=== PATIENT | female | born 1935 | race Caucasian/White ===

== ENCOUNTER → 2018-11-27 | Outpatient (REF) | payer MEDICARE, OTHER ==
[2018-11-27 17:57] LABS: APPEARANCE, URINE CLEAR (CLEAR); BACTERIA, URINE AUTO NEGATIVE (NEGATIVE); BILIRUBIN, URINE AUTO NEGATIVE (NEGATIVE); BLOOD, URINE BLOOD 1+ (NEGATIVE); COLOR, URINE STRAW (YELLOW); GLUCOSE, URINE (UA) AUTO NEGATIVE (NEGATIVE); KETONE, URINE AUTO NEGATIVE (NEGATIVE); LEUKOCYTE ESTERASE, URINE AUTO 2+ (NEGATIVE); NITRITE, URINE AUTO NEGATIVE (NEGATIVE); PROTEIN, URINE AUTO NEGATIVE (NEGATIVE); RBC, URINE AUTO 1 /HPF (0-3); SPECIFIC GRAVITY URINE AUTO 1.003 (1.002-1.035); SQUAMOUS EPITHELIAL CELL UR AU 0 /HPF (0-6); UROBILINOGEN, URINE AUTO 0.2 mg/dL (0.0-2.0); WBC, URINE AUTO 3 /HPF (0-3)
== END ==
LOC: M LAB REF 17:12
PROVIDERS: ATTEND Obstetrics & Gynecology
DX: N81.11 Cystocele, midline (principal); N32.81 Overactive bladder; Z79.899 Other long term (current) drug therapy

== ENCOUNTER 2019-01-22 11:12 | Emergency (ER) | payer MEDICARE ==
[~2019-01-22 11:12] MED LIST: ASPI81TA85 PO; ATEN25TA PO; CALC600C3 PO; MAGN400C2 PO; OMEP20CA4 PO
[2019-01-22] MEDS ORDERED: NITR100C2 PO (11:43)
[2019-01-22] MEDS ORDERED: SERT-141 PO (11:43)
[2019-01-22 12:46] VITALS: BP 189/82
== END 2019-01-22 12:57 | disposition home or self-care (01) ==
LOC: M ED 11:12
DX: F41.9 Anxiety disorder, unspecified (principal); F43.20 Adjustment disorder, unspecified; I10 Essential (primary) hypertension; N39.0 Urinary tract infection, site not specified; Z79.899 Other long term (current) drug therapy

== ENCOUNTER → 2019-03-08 | Outpatient (REF) | payer MEDICARE ==
[~2019-03-08] MED LIST changes: +NITR100C2 PO; +OMEP-172 PO; -OMEP20CA4 PO; +SERT-141 PO
[2019-03-08 18:38] LABS: APPEARANCE, URINE CLEAR (CLEAR); BACTERIA, URINE AUTO NEGATIVE (NEGATIVE); BILIRUBIN, URINE AUTO NEGATIVE (NEGATIVE); BLOOD, URINE BLOOD NEGATIVE (NEGATIVE); COLOR, URINE YELLOW (YELLOW); GLUCOSE, URINE (UA) AUTO NEGATIVE (NEGATIVE); KETONE, URINE AUTO NEGATIVE (NEGATIVE); LEUKOCYTE ESTERASE, URINE AUTO 3+ (NEGATIVE); NITRITE, URINE AUTO NEGATIVE (NEGATIVE); PROTEIN, URINE AUTO NEGATIVE (NEGATIVE); RBC, URINE AUTO 0 /HPF (0-3); SPECIFIC GRAVITY URINE AUTO 1.006 (1.002-1.035); SQUAMOUS EPITHELIAL CELL UR AU 1 /HPF (0-6); UROBILINOGEN, URINE AUTO 0.2 mg/dL (0.0-2.0); WBC, URINE AUTO 2 /HPF (0-3)
== END ==
LOC: M LAB REF 16:48
PROVIDERS: ATTEND Obstetrics & Gynecology
DX: N39.0 Urinary tract infection, site not specified (principal)

== ENCOUNTER → 2022-04-14 | Outpatient (REF) | payer MEDICARE, MEDICAID ==
[~2022-04-14] MED LIST changes: -ASPI81TA85 PO; +ASPI81TA86 PO; -OMEP-172 PO; +OMEP1CAP73 PO
[2022-04-14 08:40] LABS: HEMATOCRIT 38.4 % (36.0-47.0); HEMOGLOBIN 12.3 g/dl (12.0-15.5); MEAN CORPUSCULAR HEMOGLOBIN 31.1 pg (27.0-33.0); MEAN CORPUSCULAR VOLUME 97.2 fl (80.0-96.0); PLATELET COUNT, AUTOMATED 213 10^3/uL (150-450); RED BLOOD COUNT 3.95 10^6/uL (4.00-5.40); WHITE BLOOD COUNT 6.2 10^3/uL (4.0-10.0)
[2022-04-14 09:08] LABS: VALPROIC ACID (DEPAKOTE) < 3.0 UG/ML (50.0-100.0)
[2022-04-14 09:10] LABS: MAGNESIUM LEVEL 1.8 MG/DL (1.8-2.4)
[2022-04-14 09:12] LABS: ALKALINE PHOSPHATASE 52 U/L (46-116); ALT/SGPT 18 U/L (7.0-40); AST/SGOT 20 U/L (<34); BILIRUBIN,TOTAL 0.7 MG/DL (0.3-1.2); BLOOD UREA NITROGEN 21 MG/DL (9-23); CALCIUM LEVEL 8.9 MG/DL (8.3-10.6); CARBON DIOXIDE LEVEL 31 MMOL/L (20-31); CHLORIDE LEVEL 101 MMOL/L (98-107); GLUCOSE, FASTING 75 MG/DL (74-106); POTASSIUM SERUM 3.5 MMOL/L (3.5-5.1); SODIUM LEVEL 140 MMOL/L (136-145); TOTAL PROTEIN 5.5 G/DL (5.7-8.2)
== END ==
LOC: SKLAB8 07:00
PROVIDERS: ATTEND Internal Medicine
DX: E61.2 Magnesium deficiency (principal); F03.90 Unspecified dementia, unspecified severity, without behavioral disturbance, psychotic disturbance, mood disturbance, and anxiety

== ENCOUNTER → 2022-07-14 | Outpatient (REF) | payer MEDICARE, MEDICAID ==
[2022-07-14 08:41] LABS: HEMATOCRIT 42.5 % (36.0-47.0); HEMOGLOBIN 13.6 g/dl (12.0-15.5); MEAN CORPUSCULAR HEMOGLOBIN 31.1 pg (27.0-33.0); MEAN CORPUSCULAR VOLUME 97.3 fl (80.0-96.0); PLATELET COUNT, AUTOMATED 250 10^3/uL (150-450); RED BLOOD COUNT 4.37 10^6/uL (4.00-5.40); WHITE BLOOD COUNT 8.5 10^3/uL (4.0-10.0)
[2022-07-14 09:17] LABS: ALBUMIN 3.3 G/DL (3.2-5.2); ALKALINE PHOSPHATASE 118 U/L (46-116); ALT/SGPT 14 U/L (7.0-40); AST/SGOT 18 U/L (<34); BILIRUBIN,TOTAL 0.5 MG/DL (0.3-1.2); BLOOD UREA NITROGEN 24 MG/DL (9-23); CARBON DIOXIDE LEVEL 32 MMOL/L (20-31); CHLORIDE LEVEL 99 MMOL/L (98-107); CREATININE FOR GFR 0.87 MG/DL (0.55-1.30); GLOMERULAR FILTRATION RATE > 60.0 (>32); GLUCOSE, FASTING 86 MG/DL (74-106); MAGNESIUM LEVEL 1.8 MG/DL (1.8-2.4); POTASSIUM SERUM 3.4 MMOL/L (3.5-5.1); SODIUM LEVEL 137 MMOL/L (136-145); TOTAL PROTEIN 6.6 G/DL (5.7-8.2)
[2022-07-14 14:43] LABS: VALPROIC ACID (DEPAKOTE) < 3.0 UG/ML (50.0-100.0)
== END ==
LOC: SKLAB8 07:00
PROVIDERS: ATTEND Internal Medicine
DX: F03.918 Unspecified dementia, unspecified severity, with other behavioral disturbance (principal); E83.42 Hypomagnesemia

== ENCOUNTER → 2022-09-07 | Outpatient (REF) | payer MEDICARE, MEDICAID | LOC: SKLAB8 11:39 | PROVIDERS: ATTEND Internal Medicine | DX: M51.36 Other intervertebral disc degeneration, lumbar region (principal); M47.816 Spondylosis without myelopathy or radiculopathy, lumbar region ==

== ENCOUNTER → 2022-09-11 | Outpatient (REF) | payer MEDICARE, MEDICAID ==
[2022-09-11 11:56] LABS: HEMATOCRIT 36.6 % (36.0-47.0); HEMOGLOBIN 11.7 g/dl (12.0-15.5); MEAN CORPUSCULAR HEMOGLOBIN 30.7 pg (27.0-33.0); MEAN CORPUSCULAR VOLUME 96.1 fl (80.0-96.0); PLATELET COUNT, AUTOMATED 238 10^3/uL (150-450); RED BLOOD COUNT 3.81 10^6/uL (4.00-5.40); WHITE BLOOD COUNT 8.8 10^3/uL (4.0-10.0)
[2022-09-11 12:00] LABS: ALBUMIN 3.1 G/DL (3.2-5.2); BILIRUBIN,TOTAL 0.6 MG/DL (0.3-1.2); CALCIUM LEVEL 9.2 MG/DL (8.3-10.6); CREATININE FOR GFR 0.97 MG/DL (0.55-1.30); POTASSIUM SERUM 3.8 MMOL/L (3.5-5.1); TOTAL PROTEIN 5.8 G/DL (5.7-8.2)
== END ==
LOC: SKLAB8 06:21
PROVIDERS: ATTEND Internal Medicine
DX: R60.0 Localized edema (principal)

== ENCOUNTER → 2022-11-10 | Outpatient (REF) | payer MEDICARE, MEDICAID ==
[2022-11-10 06:45] LABS: HEMATOCRIT 35.2 % (36.0-47.0); HEMOGLOBIN 11.3 g/dl (12.0-15.5); MEAN CORPUSCULAR HEMOGLOBIN 30.8 pg (27.0-33.0); MEAN CORPUSCULAR HGB CONC 32.1 g/dl (32.0-36.5); MEAN CORPUSCULAR VOLUME 95.9 fl (80.0-96.0); PLATELET COUNT, AUTOMATED 187 10^3/uL (150-450); RED BLOOD COUNT 3.67 10^6/uL (4.00-5.40); WHITE BLOOD COUNT 6.3 10^3/uL (4.0-10.0)
[2022-11-10 07:20] LABS: VALPROIC ACID (DEPAKOTE) < 3.0 UG/ML (50.0-100.0)
[2022-11-10 07:22] LABS: ALBUMIN 2.7 G/DL (3.2-5.2); ALKALINE PHOSPHATASE 68 U/L (46-116); ALT/SGPT 13 U/L (7.0-40); AST/SGOT 9 U/L (<34); BILIRUBIN,TOTAL 0.5 MG/DL (0.3-1.2); BLOOD UREA NITROGEN 28 MG/DL (9-23); CALCIUM LEVEL 8.5 MG/DL (8.3-10.6); CARBON DIOXIDE LEVEL 33 MMOL/L (20-31); CHLORIDE LEVEL 104 MMOL/L (98-107); CREATININE FOR GFR 1.05 MG/DL (0.55-1.30); GLOMERULAR FILTRATION RATE 52.9 (>32); GLUCOSE, FASTING 78 MG/DL (74-106); MAGNESIUM LEVEL 1.9 MG/DL (1.8-2.4); POTASSIUM SERUM 3.6 MMOL/L (3.5-5.1); SODIUM LEVEL 141 MMOL/L (136-145); TOTAL PROTEIN 5.3 G/DL (5.7-8.2)
== END ==
LOC: SKLAB8 07:00
PROVIDERS: ATTEND Internal Medicine
DX: E83.42 Hypomagnesemia (principal)

== ENCOUNTER → 2023-01-10 | Outpatient (REF) | payer MEDICARE, MEDICAID ==
[2023-01-10 09:37] LABS: HEMATOCRIT 43.2 % (36.0-47.0); HEMOGLOBIN 13.9 g/dl (12.0-15.5); MEAN CORPUSCULAR HEMOGLOBIN 30.9 pg (27.0-33.0); MEAN CORPUSCULAR HGB CONC 32.2 g/dl (32.0-36.5); PLATELET COUNT, AUTOMATED 193 10^3/uL (150-450)
[2023-01-10 09:59] LABS: ALBUMIN 3.3 G/DL (3.2-5.2); ALKALINE PHOSPHATASE 82 U/L (46-116); ALT/SGPT 16 U/L (7.0-40); AST/SGOT 18 U/L (<34); BILIRUBIN,TOTAL 0.6 MG/DL (0.3-1.2); BLOOD UREA NITROGEN 23 MG/DL (9-23); CARBON DIOXIDE LEVEL 31 MMOL/L (20-31); CHLORIDE LEVEL 102 MMOL/L (98-107); CREATININE FOR GFR 0.91 MG/DL (0.55-1.30); GLOMERULAR FILTRATION RATE > 60.0 (>32); GLUCOSE, FASTING 123 MG/DL (74-106); SODIUM LEVEL 139 MMOL/L (136-145); TOTAL PROTEIN 6.3 G/DL (5.7-8.2)
== END ==
LOC: SKLAB3 07:00
PROVIDERS: ATTEND Nurse Practitioner
DX: R60.0 Localized edema (principal)

== ENCOUNTER → 2023-03-14 | Outpatient (REF) | payer MEDICARE, MEDICAID | LOC: SKLAB3 08:18 | PROVIDERS: ATTEND Internal Medicine | DX: E83.42 Hypomagnesemia (principal) ==

== ENCOUNTER → 2023-04-11 | Outpatient (REF) | payer MEDICARE, MEDICAID | LOC: SKLAB3 10:03 | PROVIDERS: ATTEND Internal Medicine | DX: I10 Essential (primary) hypertension (principal); Z53.8 Procedure and treatment not carried out for other reasons ==

== ENCOUNTER → 2023-05-16 | Outpatient (REF) | payer MEDICARE, MEDICAID ==
[2023-05-16 13:16] LABS: HEMATOCRIT 39.5 % (36.0-47.0); HEMOGLOBIN 12.8 g/dl (12.0-15.5); MEAN CORPUSCULAR HEMOGLOBIN 30.7 pg (27.0-33.0); MEAN CORPUSCULAR HGB CONC 32.4 g/dl (32.0-36.5); MEAN CORPUSCULAR VOLUME 94.7 fl (80.0-96.0); PLATELET COUNT, AUTOMATED 226 10^3/uL (150-450); RED BLOOD COUNT 4.17 10^6/uL (4.00-5.40); WHITE BLOOD COUNT 7.3 10^3/uL (4.0-10.0)
[2023-05-16 13:41] LABS: ALBUMIN 2.9 G/DL (3.2-5.2); BILIRUBIN,TOTAL 0.4 MG/DL (0.3-1.2); CALCIUM LEVEL 8.7 MG/DL (8.3-10.6); GLOMERULAR FILTRATION RATE 55.8 (>32); POTASSIUM SERUM 4.1 MMOL/L (3.5-5.1); TOTAL PROTEIN 5.8 G/DL (5.7-8.2)
== END ==
LOC: SKLAB3 10:54
PROVIDERS: ATTEND Internal Medicine
DX: F03.90 Unspecified dementia, unspecified severity, without behavioral disturbance, psychotic disturbance, mood disturbance, and anxiety (principal); G20.C Parkinsonism, unspecified

== ENCOUNTER → 2023-07-19 | Outpatient (REF) | payer MEDICARE, MEDICAID | LOC: SKLAB3 07:00 | PROVIDERS: ATTEND Nurse Practitioner | DX: E83.42 Hypomagnesemia (principal) ==

== ENCOUNTER → 2023-09-04 | Outpatient (REF) | payer MEDICARE, MEDICAID ==
[~2023-09-04] MED LIST changes: +ACET1TAB55 PO; +ARIP1TAB4 PO; +DULC10SU2 PR; +FLEEENE12 PR; +FLUO-96 PO; +FURO20TA2 PO; +MAGN400T2 PO; +MELA3TAB30 PO; +MOM30SS2 PO
== END ==
LOC: SKLAB3 21:12
PROVIDERS: ATTEND Internal Medicine
DX: Z53.8 Procedure and treatment not carried out for other reasons (principal)

== ENCOUNTER 2023-09-05 08:00 | Inpatient (IN) | payer MEDICARE, MEDICAID ==
[2023-09-05] VITALS (7 sets, daily range): BP systolic 90–104; BP diastolic 45–60; TEMP 97–97.7; O2SAT 91–97
[~2023-09-05] VITALS: Ht 147.3 cm; Wt 55.9 kg
[~2023-09-05 08:00] MED LIST changes: -ACET1TAB55 PO; -ARIP1TAB4 PO; -DULC10SU2 PR; -FLEEENE12 PR; -FLUO-96 PO; -FURO20TA2 PO; -LOVE1INJ2 SC; -MAGN400T2 PO; -MELA3TAB30 PO; -MOM30SS2 PO; -OXYC-517 PO
[2023-09-05] MEDS: ARIPiprazole 2 MG TAB PO SCH (09:00)
[2023-09-05] MEDS: MAGNESIUM OXIDE 400MG TAB (MAG-OX) PO SCH (09:00)
[2023-09-05 09:51] LABS: BASO # 0.1 10^3/uL (0.0-0.2); BASO % 0.4 % (0.0-1.0); EOS # 0.1 10^3/uL (0.0-0.5); EOS % 0.6 % (0.0-3.0); HEMATOCRIT 37.3 % (36.0-47.0); HEMOGLOBIN 12.3 g/dl (12.0-15.5); LYMPH % 6.3 % (24.0-44.0); MEAN CORPUSCULAR HEMOGLOBIN 30.8 pg (27.0-33.0); MEAN CORPUSCULAR VOLUME 93.3 fl (80.0-96.0); MONO # 0.8 10^3/uL (0.0-0.8); MONO % 5.3 % (2.0-8.0); NEUTROPHILS # 13.9 10^3/uL (1.5-8.5); PLATELET COUNT, AUTOMATED 182 10^3/uL (150-450)
[2023-09-05] MEDS ORDERED: MAGN400T2 PO (09:52)
[2023-09-05] MEDS ORDERED: FLUO-96 PO (09:52)
[2023-09-05] MEDS ORDERED: FURO20TA2 PO (09:52)
[2023-09-05] MEDS ORDERED: ARIP1TAB4 PO (09:52)
[2023-09-05] MEDS ORDERED: MELA3TAB30 PO (09:57)
[2023-09-05] MEDS ORDERED: ACET1TAB55 PO (09:57)
[2023-09-05] MEDS ORDERED: MOM30SS2 PO (09:57)
[2023-09-05] MEDS ORDERED: DULC10SU2 PR (09:57)
[2023-09-05] MEDS ORDERED: FLEEENE12 PR (09:57)
[2023-09-05] MEDS: LIDOCAINE 2% 5ML JELLY UROJET TOP ONE (09:59)
[2023-09-05] MEDS: NS 500 ML IV ONE (09:59)
[2023-09-05] MEDS ORDERED: HOME MED LIST COMPLETE! XX SCH (10:00)
[2023-09-05 10:02] LABS: INR 1.14; PARTIAL THROMBOPLASTIN TIME 23.9 SECONDS (24.8-34.2); PROTHROMBIN TIME 14.3 SECONDS (12.5-14.5)
[2023-09-05 10:19] LABS: CK-MB VALUE MASS 1.2 NG/ML (<3.6)
[2023-09-05 10:21] LABS: BLOOD UREA NITROGEN 25 MG/DL (9-23); CALCIUM LEVEL 8.9 MG/DL (8.3-10.6); CARBON DIOXIDE LEVEL 29 MMOL/L (20-31); CHLORIDE LEVEL 104 MMOL/L (98-107); CPK CREATINE PHOSPHOKINASE 139 U/L (34-145); CREATININE FOR GFR 0.93 MG/DL (0.55-1.30); GLOMERULAR FILTRATION RATE > 60.0 (>32); GLUCOSE, FASTING 146 MG/DL (74-106); MB/CK RELATIVE INDEX 0.86 (< OR =4); POTASSIUM SERUM 4.2 MMOL/L (3.5-5.1); SODIUM LEVEL 139 MMOL/L (136-145)
[2023-09-05 10:31] LABS: RSV AMPLIFICATION NEGATIVE (NEGATIVE)
[2023-09-05] MEDS: fentaNYL 100 MCG/2 ML INJECTION IV ONE (12:20)
[2023-09-05] MEDS ORDERED: fentaNYL 100 MCG/2 ML INJECTION As Ordered ONE (12:22)
[2023-09-05] MEDS: LORazepam 2 MG/ML 1ML VIAL IV STA (12:30)
[2023-09-05] MEDS: D5W/0.45% SODIUM CHLORIDE 1,000 ML IV ONE (13:39)
[2023-09-05] MEDS: EPINEPHrine INJ 1 MG/ML 1ML AMP As Ordered ONE (14:05)
[2023-09-05] MEDS ORDERED: MOM 30ML SUSPENSION UDC PO PRN (14:10)
[2023-09-05] MEDS: ceFAZolin 1GM VIAL As Ordered ONE (15:30)
[2023-09-05] MEDS ORDERED: MIDAZOLAM INJ 2MG/2ML VIAL As Ordered ONE (15:31)
[2023-09-05] MEDS ORDERED: ROCURONIUM BROMIDE 50MG/5ML VIAL As Ordered ONE (15:35)
[2023-09-05] MEDS ORDERED: ONDANSETRON 4MG 2ML VIAL As Ordered ONE (15:35)
[2023-09-05] MEDS ORDERED: propofoL 200 MG/20 ML VIAL As Ordered ONE (15:35)
[2023-09-05] MEDS ORDERED: ACETAMINOPHEN 1000MG 100ML IV BAG As Ordered ONE (15:36)
[2023-09-05] MEDS ORDERED: LABETALOL 100MG/20ML VIAL As Ordered ONE (16:03)
[2023-09-05] MEDS ORDERED: SUGAMMADEX SODIUM 500 MG/5 ML VIAL (BRIDION) As Ordered ONE (16:36)
[2023-09-05] MEDS: FLUoxetine 20MG CAP PO SCH (22:29)
[2023-09-05] MEDS: DOCUSATE SODIUM 100MG CAPSULE PO SCH (22:29)
[2023-09-05] MEDS: atenoloL 25 MG TAB PO SCH (22:30)
[2023-09-05] MEDS: ceFAZolin SOD 2 GM in IV 1 EA IV SCH (22:39)
[2023-09-06 03:02] VITALS: BP 98/56; TEMP 97; O2SAT 96
[2023-09-06 06:55] VITALS: BP 105/60; TEMP 98.6; O2SAT 98
[2023-09-06 09:31] LABS: BASO % 0.1 % (0.0-1.0); EOS # 0.2 10^3/uL (0.0-0.5); EOS % 1.1 % (0.0-3.0); HEMATOCRIT 32.1 % (36.0-47.0); HEMOGLOBIN 10.4 g/dl (12.0-15.5); LYMPH # 1.3 10^3/uL (1.5-5.0); LYMPH % 9.1 % (24.0-44.0); MEAN CORPUSCULAR HEMOGLOBIN 30.6 pg (27.0-33.0); MEAN CORPUSCULAR HGB CONC 32.4 g/dl (32.0-36.5); MEAN CORPUSCULAR VOLUME 94.4 fl (80.0-96.0); MONO % 7.4 % (2.0-8.0); NEUTROPHILS # 11.4 10^3/uL (1.5-8.5); NEUTROPHILS % 81.7 % (36.0-66.0); PLATELET COUNT, AUTOMATED 146 10^3/uL (150-450)
[2023-09-06 09:35] LABS: CALCIUM LEVEL 8.3 MG/DL (8.3-10.6); CREATININE FOR GFR 1.05 MG/DL (0.55-1.30); GLOMERULAR FILTRATION RATE 52.8 (>32); POTASSIUM SERUM 3.9 MMOL/L (3.5-5.1)
[2023-09-06] MEDS: ACETAMINOPHEN 500 MG TAB PO PRN (10:07)
[2023-09-06 11:54] VITALS: BP 104/60; TEMP 98.1; O2SAT 95
[2023-09-06 16:37] VITALS: BP 102/50; TEMP 97.9; O2SAT 96
[2023-09-06 20:26] VITALS: BP 108/52; TEMP 98.2; O2SAT 95
[2023-09-06] MEDS: ENOXAPARIN 30MG/0.3ML SYRINGE (J1650 PER 10MG) SC SCH (20:29)
[2023-09-06 20:30] VITALS: BP 108/52
[2023-09-07 05:15] VITALS: BP 108/59; TEMP 97.9; O2SAT 96
[2023-09-07] MEDS: oxyCODONE 5MG TAB PO PRN (08:04)
[2023-09-07] MEDS ORDERED: OXYC-517 PO (11:26)
[2023-09-07] MEDS ORDERED: LOVE1INJ2 SC (11:26)
[2023-09-07 11:48] VITALS: BP 108/62; TEMP 97.5; O2SAT 95
== END 2023-09-07 13:40 | DRG 522 ==
LOC: M ED 08:00 → EDBD 08:00 → M ED INP 14:06 → M MS5PR 18:10
PROVIDERS: ADMIT Internal Medicine Nephrology; ATTEND Internal Medicine Nephrology
PROC: 0SRS0J9 Replacement of Left Hip Joint, Femoral Surface with Synthetic Substitute, Cemented, Open Approach (ICD-10-PCS; principal; 2023-09-05 09:46)
DX: S72.002A Fracture of unspecified part of neck of left femur, initial encounter for closed fracture (principal); S42.212A Unspecified displaced fracture of surgical neck of left humerus, initial encounter for closed fracture; W19.XXXA Unspecified fall, initial encounter; Y92.129 Unspecified place in nursing home as the place of occurrence of the external cause; Y93.9 Activity, unspecified; Y99.9 Unspecified external cause status; Z66 Do not resuscitate; F03.90 Unspecified dementia, unspecified severity, without behavioral disturbance, psychotic disturbance, mood disturbance, and anxiety; I10 Essential (primary) hypertension; F41.9 Anxiety disorder, unspecified; G47.00 Insomnia, unspecified; F43.20 Adjustment disorder, unspecified; F32.A Depression, unspecified; Z79.899 Other long term (current) drug therapy

== ENCOUNTER → 2023-09-05 | Outpatient (REF) | payer MEDICARE, MEDICAID ==
[~2023-09-05] MED LIST changes: +LOVE1INJ2 SC; +OXYC-517 PO
== END ==
LOC: SKLAB3 05:03
PROVIDERS: ATTEND Internal Medicine
DX: S42.252A Displaced fracture of greater tuberosity of left humerus, initial encounter for closed fracture (principal); S72.092A Other fracture of head and neck of left femur, initial encounter for closed fracture; W19.XXXA Unspecified fall, initial encounter; Y92.129 Unspecified place in nursing home as the place of occurrence of the external cause; Y93.9 Activity, unspecified; Y99.9 Unspecified external cause status

== ENCOUNTER → 2023-09-08 | Outpatient (REF) | payer MEDICARE, MEDICAID ==
[~2023-09-08] MED LIST changes: +ACET1TAB55 PO; +ARIP1TAB4 PO; +DULC10SU2 PR; +FLEEENE12 PR; +FLUO-96 PO; +FURO20TA2 PO; +LOVE1INJ2 SC; +MAGN400T2 PO; +MELA3TAB30 PO; +MOM30SS2 PO; +OXYC-517 PO
== END ==
LOC: SKLAB3 12:02
PROVIDERS: ATTEND Internal Medicine
DX: Z53.8 Procedure and treatment not carried out for other reasons (principal)

== ENCOUNTER → 2023-09-08 | Outpatient (CLI) | payer MEDICARE, MEDICAID | LOC: M RAD 15:02 | PROVIDERS: ATTEND Internal Medicine | DX: R09.02 Hypoxemia (principal) ==

== ENCOUNTER 2023-09-18 11:07 | Inpatient (IN) | payer MEDICARE, MEDICAID ==
[~2023-09-18] VITALS: Ht 147.3 cm; Wt 58.5 kg
[2023-09-18] MEDS: ONDANSETRON 4MG 2ML VIAL IV ONE (11:49)
[2023-09-18] MEDS: MORPHINE 2 MG/ML 1ML VIAL IV PRN (11:50)
[2023-09-18] MEDS: NS 1,000 ML IV SCH (11:50)
[2023-09-18 12:01] LABS: BASO % 0.2 % (0.0-1.0); EOS # 0.1 10^3/uL (0.0-0.5); EOS % 0.6 % (0.0-3.0); HEMATOCRIT 34.3 % (36.0-47.0); LYMPH # 1.5 10^3/uL (1.5-5.0); LYMPH % 11.6 % (24.0-44.0); MEAN CORPUSCULAR HEMOGLOBIN 31.3 pg (27.0-33.0); MEAN CORPUSCULAR HGB CONC 32.1 g/dl (32.0-36.5); MEAN CORPUSCULAR VOLUME 97.7 fl (80.0-96.0); MONO # 0.8 10^3/uL (0.0-0.8); MONO % 6.6 % (2.0-8.0); NEUTROPHILS # 10.2 10^3/uL (1.5-8.5); NEUTROPHILS % 80.4 % (36.0-66.0); PLATELET COUNT, AUTOMATED 429 10^3/uL (150-450); RED BLOOD COUNT 3.51 10^6/uL (4.00-5.40); WHITE BLOOD COUNT 12.7 10^3/uL (4.0-10.0)
[2023-09-18 12:13] LABS: INR 1.01
[2023-09-18 12:26] LABS: BLOOD UREA NITROGEN 26 MG/DL (9-23); CALCIUM LEVEL 8.7 MG/DL (8.3-10.6); CARBON DIOXIDE LEVEL 27 MMOL/L (20-31); CHLORIDE LEVEL 101 MMOL/L (98-107); GLOMERULAR FILTRATION RATE > 60.0 (>32); GLUCOSE, FASTING 97 MG/DL (74-106); POTASSIUM SERUM 4.2 MMOL/L (3.5-5.1); SODIUM LEVEL 136 MMOL/L (136-145)
[2023-09-18] MEDS: MORPHINE 4 MG/ML 1ML VIAL IV ONE (13:45)
[2023-09-18] MEDS ORDERED: OXYC-517 PO (14:42)
[2023-09-18] MEDS ORDERED: HOME MED LIST COMPLETE! XX SCH (14:45)
[2023-09-18] MEDS: MORPHINE 2 MG/ML 1ML VIAL IV ONE (14:50)
[2023-09-18] MEDS ORDERED: fentaNYL 100 MCG/2 ML INJECTION As Ordered ONE (15:48)
[2023-09-18] MEDS ORDERED: ONDANSETRON 4MG 2ML VIAL As Ordered ONE (15:48)
[2023-09-18] MEDS ORDERED: propofoL 200 MG/20 ML VIAL As Ordered ONE (15:48)
[2023-09-18] MEDS ORDERED: LIDOCAINE 2% 100MG/5ML SDV (FOR ANES.) As Ordered ONE (15:48)
[2023-09-18] MEDS ORDERED: FLEET ENEMA PR PRN (16:25)
[2023-09-18] MEDS ORDERED: ROCURONIUM BROMIDE 50MG/5ML VIAL As Ordered ONE (17:39)
[2023-09-18] MEDS ORDERED: SUGAMMADEX SODIUM 500 MG/5 ML VIAL (BRIDION) As Ordered ONE (17:40)
[2023-09-18] MEDS ORDERED: oxyCODONE 5MG TAB PO PRN (18:20)
[2023-09-18] MEDS ORDERED: ONDANSETRON 4MG 2ML VIAL IV PRN (18:20)
[2023-09-18] MEDS ORDERED: HYDROMORPHONE HCL 0.5 MG/ 0.5 ML SYRINGE IV PRN (18:20)
[2023-09-18 20:00] VITALS: BP 120/67; TEMP 97.7; O2SAT 89
[2023-09-18 20:30] VITALS: BP 124/67; TEMP 97.7; O2SAT 91
[2023-09-18 21:00] VITALS: BP 141/76; TEMP 97.5; O2SAT 93
[2023-09-18] MEDS: FLUoxetine 20MG CAP PO SCH (21:53)
[2023-09-18] MEDS: DOCUSATE SODIUM 100MG CAPSULE PO SCH (21:53)
[2023-09-18] MEDS: atenoloL 25 MG TAB PO SCH (21:53)
[2023-09-18 22:00] VITALS: BP 138/75; TEMP 97.7; O2SAT 93
[2023-09-18 23:03] VITALS: BP 135/68; TEMP 97.3; O2SAT 94
[2023-09-18 23:57] VITALS: BP 143/77; TEMP 97.5; O2SAT 94
[2023-09-19 01:00] VITALS: BP 147/76; TEMP 97.5; O2SAT 96
[2023-09-19 04:59] VITALS: BP 148/75; TEMP 97.3; O2SAT 95
[2023-09-19] MEDS: ARIPiprazole 2 MG TAB PO SCH (08:58)
[2023-09-19] MEDS: MAGNESIUM OXIDE 400MG TAB (MAG-OX) PO SCH (08:59)
[2023-09-19] MEDS ORDERED: FUROSEMIDE 20 MG TAB PO SCH (09:00)
[2023-09-19 09:04] VITALS: BP 145/74; TEMP 97.3; O2SAT 95
[2023-09-19 12:36] VITALS: BP 115/59; TEMP 97.7; O2SAT 95
[2023-09-19] MEDS: ACETAMINOPHEN TAB 650MG DOSE (2X325MG) PO PRN (17:58)
[2023-09-19] MEDS: LR 1,000 ML IV SCH (19:27)
[2023-09-19 21:17] VITALS: BP 125/59; TEMP 97.2; O2SAT 97
[2023-09-19 23:39] VITALS: BP 130/62; TEMP 97.3; O2SAT 97
[2023-09-20] VITALS (9 sets, daily range): BP systolic 127–182; BP diastolic 64–108; TEMP 97–97.7; O2SAT 95–98
[2023-09-20 06:00] LABS: HEMATOCRIT 31.3 % (36.0-47.0); HEMOGLOBIN 9.8 g/dl (12.0-15.5); MEAN CORPUSCULAR HEMOGLOBIN 31.6 pg (27.0-33.0); MEAN CORPUSCULAR HGB CONC 31.3 g/dl (32.0-36.5); PLATELET COUNT, AUTOMATED 331 10^3/uL (150-450); WHITE BLOOD COUNT 10.8 10^3/uL (4.0-10.0)
[2023-09-20 06:26] LABS: BLOOD UREA NITROGEN 23 MG/DL (9-23); CARBON DIOXIDE LEVEL 30 MMOL/L (20-31); CHLORIDE LEVEL 104 MMOL/L (98-107); CREATININE FOR GFR 0.77 MG/DL (0.55-1.30); GLOMERULAR FILTRATION RATE > 60.0 (>32); GLUCOSE, FASTING 92 MG/DL (74-106); SODIUM LEVEL 138 MMOL/L (136-145)
[2023-09-20] MEDS ORDERED: ACETAMINOPHEN 1000MG 100ML IV BAG As Ordered ONE (08:37)
[2023-09-20] MEDS ORDERED: PHENYLEPHRINE 10MG/ML 1ML VIAL As Ordered ONE (08:56)
[2023-09-20] MEDS: ceFAZolin 2 GM/D5W 50 ML IV BAG As Ordered ONE (11:30)
[2023-09-20] MEDS: TRANEXAMIC ACID 100 MG/ML 10ML VIAL As Ordered ONE (11:45)
[2023-09-20] MEDS: VANCOMYCIN 1000MG/20ML VIAL As Ordered ONE (13:35)
[2023-09-20] MEDS ORDERED: HYDROMORPHONE HCL 0.5 MG/ 0.5 ML SYRINGE IV PRN (14:15)
[2023-09-20] MEDS ORDERED: oxyCODONE 5MG TAB PO PRN (14:15)
[2023-09-20] MEDS ORDERED: fentaNYL 100 MCG/2 ML INJECTION IV PRN (14:15)
[2023-09-20] MEDS: LR 1,000 ML IV SCH (14:15)
[2023-09-20] MEDS ORDERED: ONDANSETRON 4MG 2ML VIAL IV PRN (14:15)
[2023-09-20] MEDS: ceFAZolin SOD 2 GM in IV 1 EA IV SCH (20:20)
[2023-09-21] VITALS (7 sets, daily range): BP systolic 110–185; BP diastolic 51–109; TEMP 97.5–97.9; O2SAT 90–98
[2023-09-21] MEDS: PERCOCET 5MG/325MG TAB PO PRN (08:30)
[2023-09-21 13:06] LABS: HEMATOCRIT 28.2 % (36.0-47.0); MEAN CORPUSCULAR HEMOGLOBIN 31.1 pg (27.0-33.0); MEAN CORPUSCULAR HGB CONC 31.9 g/dl (32.0-36.5); MEAN CORPUSCULAR VOLUME 97.6 fl (80.0-96.0); PLATELET COUNT, AUTOMATED 339 10^3/uL (150-450); RED BLOOD COUNT 2.89 10^6/uL (4.00-5.40)
[2023-09-21] MEDS: ENOXAPARIN 30MG/0.3ML SYRINGE (J1650 PER 10MG) SC SCH (13:17)
[2023-09-21] MEDS: RAMELTEON 8 MG TAB (ROZEREM) PO SCH (21:35)
[2023-09-22 05:15] VITALS: BP 132/56; TEMP 97.7; O2SAT 94
[2023-09-22 09:12] LABS: HEMATOCRIT 27.4 % (36.0-47.0); HEMOGLOBIN 8.5 g/dl (12.0-15.5); MEAN CORPUSCULAR HEMOGLOBIN 30.9 pg (27.0-33.0); MEAN CORPUSCULAR VOLUME 99.6 fl (80.0-96.0); PLATELET COUNT, AUTOMATED 327 10^3/uL (150-450); RED BLOOD COUNT 2.75 10^6/uL (4.00-5.40); WHITE BLOOD COUNT 9.7 10^3/uL (4.0-10.0)
[2023-09-22 12:05] VITALS: BP 129/54; TEMP 97.5; O2SAT 100
[2023-09-22 20:56] VITALS: BP 120/54; TEMP 97.5; O2SAT 97
[2023-09-23 04:58] VITALS: BP 129/68; TEMP 97.2; O2SAT 98
[2023-09-23 06:52] LABS: HEMATOCRIT 27.7 % (36.0-47.0); HEMOGLOBIN 8.5 g/dl (12.0-15.5); MEAN CORPUSCULAR HEMOGLOBIN 30.7 pg (27.0-33.0); MEAN CORPUSCULAR HGB CONC 30.7 g/dl (32.0-36.5); PLATELET COUNT, AUTOMATED 304 10^3/uL (150-450); RED BLOOD COUNT 2.77 10^6/uL (4.00-5.40); WHITE BLOOD COUNT 8.5 10^3/uL (4.0-10.0)
[2023-09-23 12:21] VITALS: BP 131/67; TEMP 97.7; O2SAT 96
[2023-09-23 19:31] VITALS: BP 123/54; TEMP 97.7; O2SAT 94
[2023-09-24 03:53] VITALS: BP 126/55; TEMP 97.7; O2SAT 94
[2023-09-24 12:00] VITALS: TEMP 97.7; O2SAT 96
[2023-09-24 12:25] VITALS: BP 138/60; O2SAT 96
[2023-09-24 19:52] VITALS: BP 136/59; TEMP 97.5; O2SAT 97
[2023-09-25 04:00] VITALS: BP 140/59; TEMP 98.1; O2SAT 91
[2023-09-25 12:00] VITALS: BP 113/53; TEMP 97.7; O2SAT 94
[2023-09-25 19:43] VITALS: BP 114/52; TEMP 97.9; O2SAT 97
[2023-09-26 03:58] VITALS: BP 132/59; TEMP 97.7; O2SAT 99
[2023-09-26 12:00] VITALS: BP 108/63; TEMP 97.3; O2SAT 94
[2023-09-26 20:00] VITALS: BP 125/66; TEMP 97.5; O2SAT 96
[2023-09-27 04:00] VITALS: BP 139/58; TEMP 97.5; O2SAT 99
[2023-09-27 12:43] VITALS: BP 125/68; TEMP 98.1; O2SAT 97
[2023-09-27 20:00] VITALS: BP 106/55; TEMP 97.7; O2SAT 95
[2023-09-28 04:00] VITALS: BP 129/57; TEMP 97.5; O2SAT 98
[2023-09-28 12:57] VITALS: BP 126/57; TEMP 97.5; O2SAT 99
[2023-09-28 19:36] VITALS: BP 118/45; TEMP 97.7; O2SAT 96
[2023-09-29 04:06] VITALS: BP 119/46; TEMP 97.9; O2SAT 96
[2023-09-29 12:00] VITALS: BP 107/55; TEMP 97.8; O2SAT 98
[2023-09-29 21:00] VITALS: BP 127/56; TEMP 97.5; O2SAT 97
[2023-09-30 04:00] VITALS: BP 128/56; TEMP 97.9; O2SAT 97
[2023-09-30 12:00] VITALS: BP 114/66; TEMP 97.7; O2SAT 96
[2023-09-30 20:30] VITALS: BP 115/61; TEMP 97.5; O2SAT 94
[2023-10-01 04:18] VITALS: BP 117/62; TEMP 97.5
[2023-10-01 11:41] VITALS: BP 113/57; TEMP 97.5; O2SAT 96
[2023-10-01 12:25] VITALS: BP 118/60; O2SAT 100
[2023-10-01 19:37] VITALS: BP 106/49; TEMP 97.7; O2SAT 95
[2023-10-01 20:26] VITALS: BP 106/49
[2023-10-02 04:03] VITALS: BP 109/51; TEMP 97.7; O2SAT 91
[2023-10-02] MEDS: MOM 30ML SUSPENSION UDC PO PRN (11:48)
[2023-10-02 12:00] VITALS: BP 119/57; TEMP 97.5; O2SAT 95
== END 2023-10-02 13:15 | DRG 467 ==
LOC: M ED 11:07 → M ED INP 11:08 → M MS5PR 20:00 → OBSVTOIN 09-19 09:49 → M MS5PR 09-19 09:50
PROVIDERS: ADMIT Student in an Organized Health Care Education/Training Program; ATTEND Internal Medicine
PROC: 0SRS0JZ Replacement of Left Hip Joint, Femoral Surface with Synthetic Substitute, Open Approach (ICD-10-PCS; 2023-09-20)
PROC: 0SPS0JZ Removal of Synthetic Substitute from Left Hip Joint, Femoral Surface, Open Approach (ICD-10-PCS; principal; 2023-09-20 10:40)
DX: T84.021A Dislocation of internal left hip prosthesis, initial encounter (principal); J96.11 Chronic respiratory failure with hypoxia; D62 Acute posthemorrhagic anemia; S72.002D Fracture of unspecified part of neck of left femur, subsequent encounter for closed fracture with routine healing; Z96.642 Presence of left artificial hip joint; Y83.1 Surgical operation with implant of artificial internal device as the cause of abnormal reaction of the patient, or of later complication, without mention of misadventure at the time of the procedure; F03.90 Unspecified dementia, unspecified severity, without behavioral disturbance, psychotic disturbance, mood disturbance, and anxiety; I10 Essential (primary) hypertension; S42.212D Unspecified displaced fracture of surgical neck of left humerus, subsequent encounter for fracture with routine healing; T84.011A Broken internal left hip prosthesis, initial encounter; Z79.899 Other long term (current) drug therapy; F41.9 Anxiety disorder, unspecified; F32.A Depression, unspecified; G47.00 Insomnia, unspecified; Z66 Do not resuscitate; D72.829 Elevated white blood cell count, unspecified

== ENCOUNTER → 2023-09-18 | Outpatient (CLI) | payer MEDICARE, MEDICAID | LOC: M SOG 07:55 | PROVIDERS: ATTEND Physician Assistant | DX: S72.002D Fracture of unspecified part of neck of left femur, subsequent encounter for closed fracture with routine healing (principal); Z47.89 Encounter for other orthopedic aftercare; Z96.642 Presence of left artificial hip joint; T84.021A Dislocation of internal left hip prosthesis, initial encounter; Y83.1 Surgical operation with implant of artificial internal device as the cause of abnormal reaction of the patient, or of later complication, without mention of misadventure at the time of the procedure ==

== ENCOUNTER → 2023-10-10 | Outpatient (REF) | payer MEDICARE, MEDICAID | LOC: SKLAB3 08:16 | PROVIDERS: ATTEND Internal Medicine | DX: S42.212D Unspecified displaced fracture of surgical neck of left humerus, subsequent encounter for fracture with routine healing (principal); M19.012 Primary osteoarthritis, left shoulder ==

== ENCOUNTER → 2023-10-10 | Outpatient (REF) | payer MEDICARE, MEDICAID | LOC: SKLAB3 08:15 | PROVIDERS: ATTEND Internal Medicine | DX: Z53.8 Procedure and treatment not carried out for other reasons (principal) ==

== ENCOUNTER → 2023-10-11 | Outpatient (REF) | payer MEDICARE, MEDICAID | LOC: SKLAB3 13:13 | PROVIDERS: ATTEND Internal Medicine | DX: Z53.8 Procedure and treatment not carried out for other reasons (principal) ==

== ENCOUNTER → 2023-10-11 | Outpatient (CLI) | payer MEDICARE, MEDICAID | LOC: M RAD 16:33 | PROVIDERS: ATTEND Internal Medicine | DX: Z96.642 Presence of left artificial hip joint (principal) ==

== ENCOUNTER → 2023-10-12 | Outpatient (CLI) | payer MEDICARE, MEDICAID | LOC: M SOG 07:51 | PROVIDERS: ATTEND Physician Assistant | DX: Z53.9 Procedure and treatment not carried out, unspecified reason (principal) ==

== ENCOUNTER → 2023-10-17 | Outpatient (REF) | payer MEDICARE, MEDICAID ==
[2023-10-17 09:42] LABS: HEMATOCRIT 37.1 % (36.0-47.0); HEMOGLOBIN 11.4 g/dl (12.0-15.5); MEAN CORPUSCULAR HEMOGLOBIN 30.2 pg (27.0-33.0); MEAN CORPUSCULAR HGB CONC 30.7 g/dl (32.0-36.5); MEAN CORPUSCULAR VOLUME 98.4 fl (80.0-96.0); PLATELET COUNT, AUTOMATED 262 10^3/uL (150-450); RED BLOOD COUNT 3.77 10^6/uL (4.00-5.40); WHITE BLOOD COUNT 7.5 10^3/uL (4.0-10.0)
[2023-10-17 10:15] LABS: ALBUMIN 2.8 G/DL (3.2-5.2); ALKALINE PHOSPHATASE 149 U/L (46-116); ALT/SGPT 12 U/L (7.0-40); AST/SGOT 9 U/L (<34); BILIRUBIN,TOTAL 0.5 MG/DL (0.3-1.2); BLOOD UREA NITROGEN 21 MG/DL (9-23); CALCIUM LEVEL 9.1 MG/DL (8.3-10.6); CARBON DIOXIDE LEVEL 30 MMOL/L (20-31); CHLORIDE LEVEL 105 MMOL/L (98-107); CREATININE FOR GFR 0.78 MG/DL (0.55-1.30); GLOMERULAR FILTRATION RATE > 60.0 (>32); GLUCOSE, FASTING 132 MG/DL (74-106); POTASSIUM SERUM 4.1 MMOL/L (3.5-5.1); SODIUM LEVEL 140 MMOL/L (136-145); TOTAL PROTEIN 5.8 G/DL (5.7-8.2)
== END ==
LOC: SKLAB3 08:43
PROVIDERS: ATTEND Internal Medicine
DX: G20.C Parkinsonism, unspecified (principal); F02.818 Dementia in other diseases classified elsewhere, unspecified severity, with other behavioral disturbance; Z79.899 Other long term (current) drug therapy

== ENCOUNTER → 2023-11-16 | Outpatient (CLI) | payer MEDICARE, MEDICAID | LOC: M SOG 07:58 | PROVIDERS: ATTEND Physician Assistant | DX: S42.202A Unspecified fracture of upper end of left humerus, initial encounter for closed fracture (principal); S72.002A Fracture of unspecified part of neck of left femur, initial encounter for closed fracture; Y93.9 Activity, unspecified; Y92.9 Unspecified place or not applicable ==

== ENCOUNTER → 2024-02-13 | Outpatient (REF) | payer MEDICARE, MEDICAID ==
[2024-02-13 08:45] LABS: HEMATOCRIT 41.7 % (36.0-47.0); HEMOGLOBIN 13.1 g/dl (12.0-15.5); MEAN CORPUSCULAR HEMOGLOBIN 29.6 pg (27.0-33.0); MEAN CORPUSCULAR HGB CONC 31.4 g/dl (32.0-36.5); MEAN CORPUSCULAR VOLUME 94.3 fl (80.0-96.0); PLATELET COUNT, AUTOMATED 234 10^3/uL (150-450); RED BLOOD COUNT 4.42 10^6/uL (4.00-5.40); WHITE BLOOD COUNT 7.3 10^3/uL (4.0-10.0)
[2024-02-13 09:12] LABS: ALBUMIN 2.9 G/DL (3.2-5.2); BILIRUBIN,TOTAL 0.5 MG/DL (0.3-1.2); CALCIUM LEVEL 8.9 MG/DL (8.3-10.6); CREATININE FOR GFR 0.99 MG/DL (0.55-1.30); GLOMERULAR FILTRATION RATE 56.5 (>32); POTASSIUM SERUM 4.2 MMOL/L (3.5-5.1); TOTAL PROTEIN 5.9 G/DL (5.7-8.2)
== END ==
LOC: SKLAB3 07:00
PROVIDERS: ATTEND Internal Medicine
DX: G20.C Parkinsonism, unspecified (principal); Z79.899 Other long term (current) drug therapy

== ENCOUNTER → 2024-03-21 | Outpatient (REF) | payer MEDICARE, MEDICAID ==
[2024-03-21 15:08] LABS: AMORPHOUS SEDIMENT SMALL (NEGATIVE); APPEARANCE, URINE CLOUDY (CLEAR); BACTERIA, URINE AUTO 1+ (NEGATIVE); BILIRUBIN, URINE AUTO NEGATIVE (NEGATIVE); BLOOD, URINE BLOOD NEGATIVE (NEGATIVE); COLOR, URINE YELLOW (YELLOW); GLUCOSE, URINE (UA) AUTO NEGATIVE (NEGATIVE); KETONE, URINE AUTO NEGATIVE (NEGATIVE); LEUKOCYTE ESTERASE, URINE AUTO 2+ (NEGATIVE); MUCUS, URINE SMALL (NEGATIVE); NITRITE, URINE AUTO NEGATIVE (NEGATIVE); PROTEIN, URINE AUTO NEGATIVE (NEGATIVE); RBC, URINE AUTO 1 /HPF (0-3); SPECIFIC GRAVITY URINE AUTO 1.013 (1.002-1.035); SQUAMOUS EPITHELIAL CELL UR AU 2 /HPF (0-6); UROBILINOGEN, URINE AUTO 0.2 mg/dL (0.0-2.0); WBC, URINE AUTO 21 /HPF (0-3)
== END ==
LOC: SKLAB3 12:06
PROVIDERS: ATTEND Internal Medicine
DX: R30.0 Dysuria (principal)

== ENCOUNTER → 2024-06-11 | Outpatient (REF) | payer MEDICARE, MEDICAID ==
[2024-06-11 07:43] LABS: HEMATOCRIT 45.3 % (36.0-47.0); HEMOGLOBIN 14.7 g/dl (12.0-15.5); MEAN CORPUSCULAR HEMOGLOBIN 30.6 pg (27.0-33.0); MEAN CORPUSCULAR HGB CONC 32.5 g/dl (32.0-36.5); MEAN CORPUSCULAR VOLUME 94.4 fl (80.0-96.0); PLATELET COUNT, AUTOMATED 226 10^3/uL (150-450); WHITE BLOOD COUNT 7.6 10^3/uL (4.0-10.0)
[2024-06-11 08:04] LABS: ALBUMIN 3.4 G/DL (3.2-5.2); ALKALINE PHOSPHATASE 89 U/L (35-104); ALT/SGPT 14 U/L (7.0-40); AST/SGOT 16 U/L (<34); BILIRUBIN,TOTAL 0.6 MG/DL (0.3-1.2); BLOOD UREA NITROGEN 21 MG/DL (9-23); CALCIUM LEVEL 9.1 MG/DL (8.3-10.6); CARBON DIOXIDE LEVEL 28 MMOL/L (20-31); CHLORIDE LEVEL 104 MMOL/L (98-107); CREATININE FOR GFR 0.84 MG/DL (0.55-1.30); GLOMERULAR FILTRATION RATE > 60.0 (>32); GLUCOSE, FASTING 77 MG/DL (74-106); MAGNESIUM LEVEL 2.1 MG/DL (1.8-2.4); POTASSIUM SERUM 4.4 MMOL/L (3.5-5.1); SODIUM LEVEL 142 MMOL/L (136-145); TOTAL PROTEIN 6.6 G/DL (5.7-8.2)
== END ==
LOC: SKLAB3 07:00
PROVIDERS: ATTEND Internal Medicine
DX: G20.A1 Parkinson's disease without dyskinesia, without mention of fluctuations (principal); F02.80 Dementia in other diseases classified elsewhere, unspecified severity, without behavioral disturbance, psychotic disturbance, mood disturbance, and anxiety

== ENCOUNTER → 2024-10-15 | Outpatient (REF) | payer MEDICARE, MEDICAID ==
[2024-10-15 08:41] LABS: PLATELET COUNT, AUTOMATED 251 10^3/uL (150-450)
[2024-10-15 09:17] LABS: ALT/SGPT 14.0 U/L (7.0-40); AST/SGOT 18.0 U/L (<34); CALCIUM LEVEL 9.1 MG/DL (8.3-10.6); CARBON DIOXIDE LEVEL 31.0 MMOL/L (20-31); CHLORIDE LEVEL 100.0 MMOL/L (98-107); CREATININE FOR GFR 0.93 MG/DL (0.55-1.30); GLOMERULAR FILTRATION RATE 59.1 (>32); MAGNESIUM LEVEL 2.2 MG/DL (1.8-2.4); POTASSIUM SERUM 4.0 MMOL/L (3.5-5.1); SODIUM LEVEL 141.0 MMOL/L (136-145)
== END ==
LOC: SKLAB3 07:00
PROVIDERS: ATTEND Internal Medicine
DX: G20.A1 Parkinson's disease without dyskinesia, without mention of fluctuations (principal); Z79.899 Other long term (current) drug therapy

== ENCOUNTER → 2025-02-19 | Outpatient (REF) | payer MEDICARE, MEDICAID ==
[2025-02-19 08:38] LABS: PLATELET COUNT, AUTOMATED 271 10^3/uL (150-450)
[2025-02-19 09:09] LABS: ALT/SGPT 12.0 U/L (7.0-40); AST/SGOT 19.0 U/L (<34); CALCIUM LEVEL 9.1 MG/DL (8.3-10.6); CARBON DIOXIDE LEVEL 31.0 MMOL/L (20-31); CHLORIDE LEVEL 101.0 MMOL/L (98-107); CREATININE FOR GFR 0.96 MG/DL (0.55-1.30); GLOMERULAR FILTRATION RATE 56.6 (>32); MAGNESIUM LEVEL 2.0 MG/DL (1.8-2.4); POTASSIUM SERUM 4.4 MMOL/L (3.5-5.1); SODIUM LEVEL 140.0 MMOL/L (136-145)
== END ==
LOC: SKLAB3 07:00
PROVIDERS: ATTEND Family Medicine
DX: G20.A1 Parkinson's disease without dyskinesia, without mention of fluctuations (principal); F02.80 Dementia in other diseases classified elsewhere, unspecified severity, without behavioral disturbance, psychotic disturbance, mood disturbance, and anxiety